=== PATIENT | male | born 1955 | race African-American/Black ===

== ENCOUNTER 2023-08-01 12:51 | Emergency (ER) | payer OTHER ==
[~2023-08-01] VITALS: Ht 180.3 cm; Wt 89.8 kg
[2023-08-01] MEDS ORDERED: CEPHALEXIN500 M1 PO (14:03)
== END 2023-08-01 14:15 | disposition home or self-care (01) ==
LOC: ED 12:51
DX: S71.111A Laceration without foreign body, right thigh, initial encounter (principal); W27.0XXA Contact with workbench tool, initial encounter; Y93.89 Activity, other specified; Y92.89 Other specified places as the place of occurrence of the external cause; Y99.8 Other external cause status

== ENCOUNTER 2023-08-09 06:01 | Emergency (ER) | payer OTHER ==
[~2023-08-09] VITALS: Ht 180.3 cm; Wt 89.8 kg
[~2023-08-09 06:01] MED LIST: CEPHALEXIN500 M1 PO
[2023-08-09 06:32] LABS: BASO % 0.4 % (0.0-1.0); EOS # 0.2 10*3/uL (0.0-0.4); EOS % 2.2 % (1.0-4.0); HEMATOCRIT 41.2 % (42.0-52.0); LYMPH # 2.2 10*3/uL (1.3-4.4); LYMPH % 22.8 % (27.0-41.0); MEAN CELL VOLUME 88.8 fl (80.0-94.0); MEAN CORPUSCULAR HGB CONC 33.7 g/dl (33.0-37.0); MEAN PLATELET VOLUME 9.8 fl (9.6-12.3); MONO # 0.7 10*3/uL (0.1-1.0); MONO % 7.1 % (3.0-9.0); NEUT # 6.5 10*3/uL (2.3-7.9); NEUT % 67.2 % (47.0-73.0); PLATELET COUNT AUTOMATED 299 10*3/uL (130-400); RED BLOOD COUNT 4.64 10*6/uL (4.50-5.90); RED CELL DISTRI WIDTH 12.5 % (0-14.5); WHITE BLOOD COUNT 9.6 10*3/uL (4.8-10.8)
== END 2023-08-09 07:02 | disposition home or self-care (01) ==
LOC: ED 06:01
PROVIDERS: Internal Medicine
DX: S71.111D Laceration without foreign body, right thigh, subsequent encounter (principal); W27.0XXD Contact with workbench tool, subsequent encounter

== ENCOUNTER 2023-08-23 09:01 | Emergency (ER) | payer OTHER ==
[~2023-08-23] VITALS: Ht 180.3 cm; Wt 88.5 kg
== END 2023-08-23 09:55 | disposition home or self-care (01) ==
LOC: ED 09:01
DX: S71.111D Laceration without foreign body, right thigh, subsequent encounter (principal); X58.XXXD Exposure to other specified factors, subsequent encounter

== ENCOUNTER 2023-10-23 01:02 | Emergency (ER) | payer OTHER ==
[~2023-10-23] VITALS: Ht 180.3 cm; Wt 83.9 kg
[2023-10-23] MEDS ORDERED: AMOX-CLAV 875-1 EACH PO (01:17)
[2023-10-23] MEDS ORDERED: Ketorolac Tromethamine 60 MG/2 ML VIAL IM ONE (01:20)
[2023-10-23] MEDS ORDERED: Amoxicillin/Clavulanate Pota 875 MG TAB PO ONE (01:20)
== END 2023-10-23 01:39 | disposition home or self-care (01) ==
LOC: ED 01:02
DX: K04.7 Periapical abscess without sinus (principal); K02.9 Dental caries, unspecified; F17.210 Nicotine dependence, cigarettes, uncomplicated

== ENCOUNTER 2024-05-15 21:01 | Emergency (ER) | payer OTHER ==
[~2024-05-15] VITALS: Ht 180.3 cm; Wt 79.4 kg
[~2024-05-15 21:01] MED LIST changes: +AMOX-CLAV 875-1 EACH PO
[2024-05-15] MEDS ORDERED: PREDNISONE50 MG PO (21:28)
[2024-05-15] MEDS ORDERED: methylPREDNISolone sod succ 125 MG VIAL IM ONE (21:30)
== END 2024-05-15 22:28 | disposition home or self-care (01) ==
LOC: ED 21:01
DX: S20.469A Insect bite (nonvenomous) of unspecified back wall of thorax, initial encounter (principal); W57.XXXA Bitten or stung by nonvenomous insect and other nonvenomous arthropods, initial encounter; Y93.89 Activity, other specified; Y92.009 Unspecified place in unspecified non-institutional (private) residence as the place of occurrence of the external cause; Y99.8 Other external cause status